=== PATIENT | male | born 1955 | race Caucasian/White ===

== ENCOUNTER 2017-05-24 08:22 | Day surgery (SDC) | payer BC ==
[2017-05-24] MEDS ORDERED: Lactated Ringers 1,000 ML IV SCH (08:30)
[2017-05-24] MEDS ORDERED: Propofol 200 MG/20 ML SDV IV ONE (10:40)
--- NOTE | 2017-05-24 11:10 | PCM.OPNOTE ---
- General Post-Op/Procedure Note Date of Surgery/Procedure: 05/24/17 Operative Procedure(s): c scope with bx Findings: descending colon polyp Pre Op Diagnosis: diarrhea and lower abd pain Post-Op Diagnosis: descending colon polyp Anesthesia Technique: MAC Primary Surgeon: Abel Soares Anesthesia Provider: Cy Huynh Pathology: descending colon polyp random colon biopsies Complications: None Condition: Good Free Text/Narrative:: see dictation
[2017-05-24 11:52] VITALS: BP 111/75
--- NOTE | 2017-05-28 11:40 | OR ---
DATE OF OPERATION: 05/28/2017 SURGEON: Abel Soares MD PROCEDURE PERFORMED: Colonoscopy with cold forceps biopsy. PREOPERATIVE DIAGNOSIS: Lower abdominal pain and diarrhea. POSTOPERATIVE DIAGNOSIS: Descending colon polyp. INDICATIONS FOR PROCEDURE: This is a 62-year-old white male who presents with the above-mentioned complaints of crampy abdominal pain as well as diarrhea. He was offered and accepted a colonoscopy. DESCRIPTION OF OPERATION: After an excellent IV sedation was administered, digital rectal exam was performed. No marked abnormality was noted. The flexible colonoscope was inserted and advanced to the cecum without difficulty. The prep was excellent. The following findings were noted. Ascending colon, unremarkable. Random biopsies were taken. Transverse colon, unremarkable. Random biopsies were taken. Descending colon, a small polyp, biopsied with cold biopsy forceps and sent for permanent. Random biopsies were taken. Sigmoid and rectum unremarkable. Random biopsies were taken. Random biopsies were taken due to the patient's complaint of the diarrhea. The colon was deflated. The scope was removed. The patient tolerated the procedure well, and was taken to recovery room in good condition. /[id number] /MODL
== END 2017-05-24 12:07 | disposition home or self-care (01) ==
LOC: FB.SDS 08:22
PROVIDERS: ATTEND Surgery
DX: D12.4 Benign neoplasm of descending colon (principal); E78.5 Hyperlipidemia, unspecified; K21.9 Gastro-esophageal reflux disease without esophagitis; G20 Parkinson's disease; G25.81 Restless legs syndrome; Z79.899 Other long term (current) drug therapy; Z79.82 Long term (current) use of aspirin; Z90.49 Acquired absence of other specified parts of digestive tract; Z98.890 Other specified postprocedural states
CPT/HCPCS: 45380; 88305; J2704; J7120